=== PATIENT | female | born 1950 | race Caucasian/White ===

== ENCOUNTER 2016-10-21 19:05 | Observation (INO) | payer MEDICARE, MEDICAID ==
[~2016-10-21] VITALS: Ht 167.6 cm; Wt 93.7 kg
[~2016-10-21 19:05] MED LIST: ASPI81TA3 PO; CYAN250014 PO; DICL75TA6 PO; FLUO20CA25 PO; FLUT16SP NS; LOSA100T29 PO; MONT10TA23 PO; TRIA1CAP5 PO
--- NOTE | 2016-10-21 19:09 | ED.REPORT ---
HPI-Chest Pain 40 and Over Date of Service Oct 21, 2016 ED Provider: Dr. Whitehead 66 year old female with a history of HTN and GERD presents to the ER accompanied by her granddaughter complaining of a week of intermittent chest pain. She states that symptoms worsened today becoming constant, with radiation down her left arm. Associated symptoms include SOB yesterday, nausea, headache, fatigue, chills, and dizziness/lightheadedness yesterday. Patient denies lower extremity swelling, diaphoresis, cough, fever, exertional component to her pain , recent immobilization or travel. Similar symptoms in the past associated with low potassium, and with GERD exacerbation. Nursing Notes Stated Complaint: CHEST PAIN Chief Complaint: Chest Pain Nursing Notes Reviewed: Yes Allergies: Coded Allergies: lisinopril (Verified Allergy, Unknown, 10/21/16) Uncoded Allergies: BATA BLOCKERS (Allergy, Unknown, 04/27/16) ERYTHROMYCIN (Allergy, Unknown, 04/27/16) PCN (Allergy, Unknown, 04/27/16) Scheduled Amlodipine (Amlodipine) 10 Mg Tablet 10 MG PO QAM Fluoxetine (Fluoxetine) 20 Mg Capsule 60 MG PO QAM Fluticasone Propionate (Fluticasone Propionate Nasal) 16 Gm [place].susp 1 SPRAY NS BID Losartan Potassium (Losartan Potassium) 100 Mg Tablet 100 MG PO QAM Montelukast (Montelukast) 10 Mg Tablet 10 MG PO QAM Omeprazole (Omeprazole) 20 Mg Tablet.dr 20 MG PO QAM Triamterene/HCTZ 37.5-25 mg (Triamterene/HCTZ 37.5-25 mg) 1 Each Capsule 1 CAPSULE PO QAM Scheduled PRN diphenhydrAMINE HCl (Benadryl) 25 Mg Capsule 50 MG PO HS PRN PRN General Time Seen by MD: 19:08 Chief Complaint Chest pain Hx Obtained From: Patient Arrived By: Walk-in Sudden in Onset?: No Onset Occurred: 1 week ago Symptom Duration: Intermittent Location: : Substernal Quality: Painful Radiation: : Arm left Severity: Current: Mild Severity: Maximum: Moderate Associated with: Reports: Dizziness, Fatigue, Nausea, Shortness of Breath, Syncope, Denies: Cough, non-productive, Diaphoresis, Fever Additional Notes: Pt complains of LOPEZ Context Related History: Reports: GERD, Hypertension Similar Sx Previous: Yes Risk Factors )( CAD Risk Stratification Family history Past Medical History Past Medical History Reports: Asthma, GERD, Hypertension Past Surgical History Reports: , Cholecystectomy, Hysterectomy Family History Father of [place] Smoking History Current Every Day Smoker Social History Drug Use: Denies drug use Ambulatory Status Independent Review of Systems Constitutional: Reports: Chills, Fatigue, Denies: Fever Respiratory: Reports: Shortness of breath, Denies: Non-productive cough Cardiovascular: Reports: Chest pain GI: Reports: Nausea, Denies: Vomiting Musculoskeletal: Reports: Back pain, Denies: Extremity swelling Skin: Denies Diaphoresis Neurologic: Reports: Dizziness, Headache, Lightheaded Complete sys rev & neg: except as marked. Physical Exam Initial Vital Signs Vital Signs (First) Date Time Temp Pulse Resp B/P Pulse Ox O2 Delivery O2 Flow Rate FiO2 10/21/16 19:10 36.6 87 17 152/71 97 Room Air Initial VS: Reviewed Head / Eyes: Atraumatic, Normocephalic, PERRL Neck: Supple, Non-tender, Full range of motion Extremities: Vascular intact, Neuro intact, No swelling, No tenderness Skin: Warm, Dry, No cyanosis Neurologic: Alert, Oriented, Nonfocal General/Constitutional: Awake, Alert, No acute distress, Well appearing Respiratory / Chest: Breath sounds NL, Breath sounds = bilat, No respiratory distress, No rales, No rhonchi, No wheezing, No stridor, No chest tenderness Cardiovascular: Heart rate NL, Regular rhythm, Heart sounds NL, No murmurs, Peripheral circulation NL, Pulses = bilaterally, No gross BP differential Interpretation & Diagnostics Lab Results Interpretation Result Diagram: 10/21/16192210/21/161922 Test 10/21/16 19:23 White Blood Count 8.9th/mm3 (3.8-10.1) Red Blood Count 4.46mil/mm3 (3.90-5.20) Hemoglobin 13.5g/dL (12.0-15.6) Hematocrit 41.8% (35.0-46.0) Mean Corpuscular Volume 93.7fL (81-100) Mean Corpuscular Hemoglobin 30.3pg (27.0-35.0) Mean Corpuscular Hemoglobin Concent 32.3% (32.0-37.0) Red Cell Distribution Width 13.1% (12.3-15.4) Platelet Count 313bil/L (150-400) Neutrophils (%) (Auto) 53.1% (40-74) Lymphocytes (%) (Auto) 35.2% (14-46) Monocytes (%) (Auto) 9.1% (4-12) Eosinophils (%) (Auto) 1.7% (0-5) Basophils (%) (Auto) 0.7% (0-3) D-Dimer < 0.50mg/L FEU (<0.50) Sodium Level 140mEq/L (134-144) Potassium Level 3.6mEq/L (3.5-5.2) Chloride Level 100mEq/L (97-108) Carbon Dioxide Level 25mmol/L (18-29) Blood Urea Nitrogen 19mg/dL (8-27) Creatinine 0.96mg/dL (0.57-1.00) Estimat Glomerular Filtration Rate 83mL/min (>59) Glucose Level 112mg/dL (60-99) Calcium Level 9.5mg/dL (8.5-10.1) Magnesium Level 2.0mg/dL (1.6-2.6) Total Bilirubin 0.2mg/dL (0.0-1.2) Aspartate Amino Transf (AST/SGOT) 20U/L (0-50) Alanine Aminotransferase (ALT/SGPT) 26U/L (0-32) Alkaline Phosphatase 68U/L (25-165) Troponin T < 0.010ug/L (0.0-0.011) Pro-B-Type Natriuretic Peptide 170.4pg/mL (0-301) Total Protein 7.1g/dL (6.4-8.4) Albumin 4.3g/dL (3.4-5.0) Hold Hartman Top Tube Received (Received) ECG Interpretation ECG Interpretation: Sinus rhythm, rate 80 Q wave in lead [address] depression v3-v6 T wave inversion in aVR No ST elevations Unchanged from prior Time: 19:23 Interpreted by: ED physician X-Ray Chest Interpretation Chest Xray Interpretation: IMPRESSION: No acute cardiopulmonary disease. Dictated by: Phan Sheth M.D. on 10/21/2016 at 20:07 Approved by: Phan Sheth M.D. on 10/21/2016 at 20:08 View: AP & lat Interpretation / Wet Read by: Interpret - Radiologist CT Abd / Pelvis Interpretation Re-Eval/Medical Decision Med Decision/Clinical Course 66-year-old female with past medical history of hypertension and GERD here with chest pain. Differential diagnosis includes but is not limited to ACS versus PE versus pneumonia versus pleural effusion. Chest x-ray is unremarkable. Initial EKG is unchanged from prior. CBC CMP and troponin are unremarkable. Patient's d-dimer was negative, so she does not require PE study. Given her history, and age, she has been admitted by the hospitalist for ACS rule out. She is aware and amenable to plan. Source of Hx: Old records Time of Eval: 20:28 Re-Evaluation/Progress Note: Discussed lab and radiology results and need for admission. Patient is amenable to the plan. All other questions addressed. Consultation : Referral / Consult Name: Raman Harris MD Consulted With: Hospitalist Call Returned at: 20:43 Mass Spec: Agrees with eval, Agrees with plan, Accepts admit Counseled Regarding: Diagnosis, Lab results, Need for admission Discharge & Departure Primary Impression: Chest pain Disposition: ADMITTED TO HOSPITAL Discharge Condition All VS Reviewed: Yes Condition: Stable Referrals: OTHER,PHYSICIAN (PCP) (Family) Scribe Attestation Portions of this note were transcribed by Russ Holloway and Lorenzo Alvares. I, Dr. Whitehead, personally performed the history, physical exam and medical decision- making; I reviewed and confirmed the accuracy of the information in the transcribed note. Signed by: Davis Lopez. 10/21/2016 - 20:43 Claudine Whitehead MD Oct 21, 2016 19:09 LORENZO ALVARES Oct 21, 2016 19:18 Russ Holloway Oct 21, 2016 19:25
[2016-10-21 19:10] VITALS: BP 152/71; PULSE 87; RESP 17; O2SAT 97
[2016-10-21 19:34] LABS: BASOPHILS % (AUTO) 0.7 % (0-3); EOSINOPHILS % (AUTO) 1.7 % (0-5); MONOCYTES % (AUTO) 9.1 % (4-12); Mean Corpuscular Hemoglobin 30.3 pg (27.0-35.0); Mean Corpuscular Volume 93.7 fL (81-100); NEUTROPHILS % (AUTO) 53.1 % (40-74); Platelet Count 313 bil/L (150-400)
[2016-10-21 20:00] LABS: TROPONIN T < 0.010 ug/L (0.0-0.011)
--- NOTE | 2016-10-21 20:09 | DRSVH ---
PROCEDURE: X-RAY CHEST, TWO VIEWS ([id number]) INDICATIONS: chest pain TECHNIQUE: 2 views of the chest were acquired. COMPARISON: None. FINDINGS: Surgical changes and devices: None. Lungs and pleura: No pleural effusions or pneumothorax. Lungs are clear. Mediastinum: Mediastinal contours are normal. Heart size is normal. Bones and chest wall: No suspicious bony abnormalities. Soft tissues appear unremarkable. IMPRESSION: No acute cardiopulmonary disease. Dictated by: Phan Sheth M.D. on 10/21/2016 at 20:07 Approved by: Phan Sheth M.D. on 10/21/2016 at 20:08
[2016-10-21] MEDS ORDERED: Alum-Mag Hydrox-Simeth 30 mL Suspension PO PRN ×2 (20:45→23:05)
[2016-10-21] MEDS ORDERED: Ondansetron 2 mg/mL 2 mL Inj IVPUSH PRN ×2 (20:45→23:05)
[2016-10-21] MEDS ORDERED: AMLO10TA3 PO (20:47)
[2016-10-21] MEDS ORDERED: OMEP20TA86 PO (20:47)
[2016-10-21] MEDS ORDERED: DIPH25CA6 PO (20:47)
[2016-10-21 21:35] VITALS: BP 142/52; PULSE 78; RESP 28; O2SAT 97
[2016-10-21 21:56] VITALS: BP 142/52; PULSE 78; RESP 28; O2SAT 97
[2016-10-21 22:07] VITALS: BP 169/78; PULSE 78; RESP 20; O2SAT 98
[2016-10-21] MEDS ORDERED: Polyethylene Glycol (PEG) 17 Gm Powder PO PRN (23:05)
[2016-10-21] MEDS ORDERED: Donnatal-Lido-Mylant 1:1:1 15 mL Syringe PO ONE (23:05)
--- NOTE | 2016-10-21 23:37 | PCM.HPMED ---
Subjective Date of Service Oct 21, 2016 Primary Provider: Admitting Physician: Raman Harris MD Primary Care Physician: Nopcp Attending Physician: Raman Harris MD Chief Complaint: chest pain History of Present Illness: 66yo lady with reported hx of htn, gerd. intermittent chest pain over the past week. L sided, substernal with radiation to L shoulder, arm. associated with some lightheadedness. rated as moderate to severe at worst. now subsiding. pain can be at rest or with activity. no known inciting factors. does have hx of gerd. reports prolonged immobility sits a lot during the day has bad knees does not move around a lot. no know hx of cad. Review of Systems: Positive Review of Symptoms mentioned and elaborated on in HPI. Head: Denies H/A, trauma, loss of consciousness. Eyes: Denies visual loss, diplopia. Ears: Denies: deafness, tinnitis, discharge, pain Nose: Denies discharge, obstruction, epistaxis Mouth: Denies sores, gingival bleeding, jaw pain Neck: Denies stiffness, issues swallowing. Respiratory: Denies cough, sputum. Cardiovascular:see hpi Denies palpitations, orthopnea, peripheral edema Gastrointestinal: Denies melena, abd pain, n/v/d Genitourinary: Denies dysuria, discharge. Skin: Denies: lesions, rashes, pruritus. Musculoskeletal: chronic knee pain.Denies new joint pain, swelling or increased warmth. Neuro: Denies numbness, tingling, weakness. Psyc: Currently denies feelings of anxiety, depression. Allergies Coded Allergies: lisinopril (Verified Allergy, Unknown, 10/21/16) Uncoded Allergies: BATA BLOCKERS (Allergy, Unknown, 04/27/16) ERYTHROMYCIN (Allergy, Unknown, 04/27/16) PCN (Allergy, Unknown, 04/27/16) Home Medications see med rec PMH as described in hpi Surgical History hysterectomy, gallbladder Family History + cardiac disease, mom&dad Social History Hx Alcohol Use: No Hx Substance Use: No Hx Tobacco Use: Yes (1/2 pack per day since 18yrs old) Smoking Status: Current Every Day Smoker Exam Vital Signs Vital Sign - Last Date Time Temp Pulse Resp B/P Pulse Ox O2 Delivery O2 Flow Rate FiO2 10/21/16 22:07 36.7 78 20 169/78 98 Room Air Exam General: No acute distress. Awake, alert. Head: Normocephalic, atraumatic. Eyes: White sclera. Conjunctiva non-injected. Mouth & Throat: No Bleeding. No erythema, lesions, exudates visualized. Neck: No tender adenopathy. Trachea midline. Respiratory: Clear to auscultation bilaterally. Symmetric chest expansion. Regular work of breathing without use of accessory muscles. Cardiovascular: S1, S2. Regular rate and rhythm without murmurs, rubs or gallops. Pulses 2+ equal bilaterally. tenderness along costochondral junctions b /l Abdomen: Normal bowel sounds x4 quadrants. Soft, non-tender, non-distended. Extremities: Intact. no joint effusions. no lower extremity tenderness, swelling , erythema or increased warmth. Skin: Intact, no lesions, no rash. Neurologic: Awake, alert, oriented x3. No focal deficits. Psychiatric: Appropriate mood and affect. Cooperative. Lab and Diagnostics Result Diagram: 10/21/16192210/21/161922 Assessment & Plan -- chest pain investigate for cardiac etiology serial troponins, echocardiogram, possible stress test in am. aspirin, statin, if necessary and as tolerated prn morphine, nitro. cbc, bmp, magnesium, tsh, lipid panel, urine toxicology if cardiac etiologies ruled out will evaluate for alternative differentials. should there be any clinical change in the interm to suggest an alternate diagnosis this will also be pursued. cta chest now. repeat ekg, troponin -- htn antihypertensives as tolerated -- gerd cont antacids. trial of gi cocktail dvt proph: lovenox. f/e/n: npo aftermidnight in case of stress test in am. monitor electrolytes. dispo: admit obs tele. expected los <2 midnights VTE Mechanical Devices: Intermittant Pneumatic CD Raman Harris MD Oct 21, 2016 23:37
--- NOTE | 2016-10-21 23:39 | NUR ---
Admit to room 3024 with unresolved chest pain. pain 6/10, BP Hypertensive 169/78 pulse 78, 98% O2 sat on RA. Alert and Oriented x3. Oriented to room, non-slip socks on for safety and POC on whiteboard.
[2016-10-21] MEDS: 0.9% Sodium Chloride 1,000 ML IV SCH (23:53)
[2016-10-22] VITALS (8 sets, daily range): BP systolic 121–156; BP diastolic 57–76; PULSE 60–75; RESP 18–21; O2SAT 94–98
[2016-10-22] MEDS: LORazepam 0.5 mg Tablet PO PRN ×2 (03:22→20:09)
--- NOTE | 2016-10-22 04:22 | NUR ---
Pain / Anxiety 6/10 prior to admin of 4mg Morphine, now 0/10. Unable to sleep due to anxiety, admin 0.5mg Ativan to good effect. Patient resting quietly
[2016-10-22 06:01] LABS: BASOPHILS % (AUTO) 0.4 % (0-3); EOSINOPHILS % (AUTO) 1.5 % (0-5); MONOCYTES % (AUTO) 10.9 % (4-12); Mean Corpuscular Hemoglobin 29.6 pg (27.0-35.0); Mean Corpuscular Volume 94.3 fL (81-100); NEUTROPHILS % (AUTO) 53.7 % (40-74); Platelet Count 281 bil/L (150-400)
[2016-10-22] MEDS: Pantoprazole 20 mg ER24 Tablet PO SCH (06:29)
--- NOTE | 2016-10-22 08:28 | DRSVH ---
PROCEDURE: CT ANGIO CHEST PULMONARY EMBOLISM ([id number]) INDICATIONS: chest pain TECHNIQUE: After the administration of intravenous contrast, 2 mm thick sections acquired from the pulmonary api ayaan to the posterior costophrenic angles. 3-dimensional maximum intensity projection (MIP) coronal a nd sagittal reformats were then acquired through the thorax. For radiation dose reduction, the follo wing was used: automated exposure control, adjustment of mA and/or kV according to patient size. COMPARISON: [facility], CT, CT ABD PELVIS W CON, 04/27/2016, 22:38. FINDINGS: Image quality: Excellent. Pulmonary arteries: Pulmonary arteries are normal in size, and demonstrate no intraluminal filling d efects to suggest central pulmonary embolism. Lungs and pleura: Lungs are clear. No pleural effusions or pneumothorax. Central and peripheral ai rways are patent. Mediastinum: Heart size is normal, without pericardial effusion. No mediastinal or hilar adenopathy . Thoracic aorta is normal in caliber and enhancement. Esophagus is normal in caliber, without hiat al hernia. Bones and chest wall: No suspicious bony lesions. Ribs and thoracic spine appear intact throughout. Thyroid gland is unremarkable. No axillary or supraclavicular adenopathy. Abdomen: There is an unchanged appearance of mild left adrenal thickening. Cholecystectomy. Otherwis e, visualized upper abdominal solid organs appear normal in the early arterial phase of enhancement. IMPRESSION: 1. No visualized pulmonary embolism. 2. Lungs are clear. Dictated by: Liliana Silva M.D. on 10/22/2016 at 8:24 Approved by: Liliana Silva M.D. on 10/22/2016 at 8:26
[2016-10-22] MEDS: Fluticasone 0.05% 15 Spray/2 Gm 16 Gm Nasal Spray NASAL SCH ×2 (09:01→20:09)
--- NOTE | 2016-10-22 09:14 | NUR ---
Social Work: Initial Assessment Data: Pt is a 66 y/o female admitted for chest pain. Pt's PCP is not listed, pt's insurance is [facility] Medicare. EMR reviewed. Readmit score not listed. SERVICES MANAGER met with pt at bedside, role explained. 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 Pt drives, has no hx of HH or SNF, no LTC or VA benefits. Pt does not have AD/DPOA, accepted info from SERVICES MANAGER. SERVICES MANAGER requested UR specialist set up an appointment with [facility] as pt requested assistance with getting a PCP. No d/c planning needs anticipated at this time. SERVICES MANAGER will continue to follow if needs arise. Assessment: Pt who is independent at baseline. Plan: Pt will d/c home via POV when medically stable. No d/c planning needs anticipated at this time. SERVICES MANAGER will continue to follow if needs arise. ANGY El Addendum: 10/22/16 at 0916 by ANATOLIY MENDOZA Amended: Links added.
[2016-10-22] MEDS: 0.9% Sodium Chloride 1,000 ML IV SCH ×2 (10:32→18:13)
--- NOTE | 2016-10-22 10:52 | NUR ---
Pain Patient c/o chest pain 12/26. Notified Dr Shane. PRN morphine given as ordered for chest pain. Dr Shane at bed side and spoke to patient. Will continue to monitor.
--- NOTE | 2016-10-22 11:11 | NUR ---
New order Per Dr. Shane order patient can eat now. Diet orders heart healthy diet. Per patient I am hungry and requested orange juice and Jello and given as patient requested. EKG at bed side is in progress. Follow up after morphine given and states," it is better than before but not completely gone." Will continue to monitor.
--- NOTE | 2016-10-22 11:29 | NUR ---
EKG Notified Dr Shane r/t EKG results and handed paper results for 10/22 and 10/21 to compare. per orders continue to monitor for chest pain and morphine. patient received lunch and eating at bed side with out any increased sign and symptoms of pain. Continue to monitor.
--- NOTE | 2016-10-22 11:51 | NUR ---
Telemetry per Tele sinus 85.
--- NOTE | 2016-10-22 13:39 | NUR ---
ECHOCARDIOGRAM Echocardiogram is in progress at bed side.
--- NOTE | 2016-10-22 14:56 | NUR ---
New orders Patient is c/o chest pain intermittent. Notified Dr Shane and writing new orders for pain medication PO PRN.
--- NOTE | 2016-10-22 15:43 | NUR ---
Headache C/o back pain and head aches 6/10 per patient. PRN Tylenol given as ordered for pain. continue to monitor.
--- NOTE | 2016-10-22 16:06 | NUR ---
set up [facility] F/U apt with Dr. Gleason 10/30 with a 10:15A check in. advised SIMULATION SPECIALIST.
--- NOTE | 2016-10-22 16:29 | DRSVH ---
[facility] [address] [place] [address] Echocardiogram Report Name: DAMI PACHECO ISsavanah Date : 10/22/2016 Height: 66 in Hospital Exam Location: [facility] Weight: 207 lb Gender: Female BSA: 2.0 m2 : 1950 Age: 66 yrs BP: 121/76 mmHg Reason For Study: CHEST PAIN Ordering Physician: Performed By: Castro Roberts Interpretation Summary Normal left ventricle size with ejection fraction 60-65%. Grade I diastolic dysfunction. Mildly dilated left atrium. Moderate aortic valve sclerosis. The right ventricular systolic pressure is estimated at 26 mmHg assuming a right atrial pressure of 3 mm Hg. Procedure: A two-dimensional transthoracic echocardiogram with color flow and Doppler was performed. The study quality was technically adequate. Images from the parasternal window were difficult to obtain and are suboptimal in quality. There is no prior echocardiogram noted for this patient. The patient was in normal sinus rhythm during the exam. Left Ventricle: The left ventricle is normal in size. There is normal left ventricular wall thickness. Trabeculae near apex are visualized. No thrombus is observed. The ejection fraction is estimated to be 60-65%. There are no focal wall motion abnormalities. Assessment of diastolic parameters indicates a relaxation abnormality of the left ventricle, consistent with normal filling pressures. Right Ventricle: The right ventricle is normal in size and function. Atria: The left atrium is mildly dilated. Right atrial size is normal. The interatrial septum is intact with no evidence for an atrial septal defect. Mitral Valve: The mitral valve is normal in structure and function. There is trace mitral regurgitation. Aortic Valve: The aortic valve opens well. There is moderate aortic valve sclerosis. No aortic regurgitation is present. Tricuspid Valve: The tricuspid valve is normal in structure and function. There is trace tricuspid regurgitation. The right ventricular systolic pressure is estimated at 26 mmHg assuming a right atrial pressure of 3 mm Hg. Pulmonic Valve: The pulmonic valve is not well visualized. Great Vessels: The aortic root is normal size. The dimensions of the ascending aorta are normal. The pulmonary artery is normal size. The IVC is of normal diameter and collapses greater than 50% with a sniff. This suggests a low right atrial pressure of 3 mm Hg. Pericardium/ Pleura There is no pericardial effusion. There is no pleural effusion. MMode/2D Measurements & Calculations LVIDd: 4.7 cm RA long axis LVOT diam LVIDs: 3.2 cm LA A2 area: 23.0 cm FS: 31.6 % LA A4 area: 19.0 cm RA area Ao root diam EPSS: 0.51 cm LA length (vol): 5.3 cm IVSd: 1.2 cm LA vol: 70.2 ml : 10.8 cm asc Aorta LVPWd: 1.1 cm LA vol index RA vol: 27.5 mlDiam: 3.0 cm RA : 13.5 mm2 IVC diam: 1.5 cm LV forman. diameter/BSA LV sys. diameter/BSA (cm/m^2): 2.3 (cm/m^2): 1.6 Doppler Measurements & Calculations Ao V2 max MV E max perry MV E/A: 0.71 TR max perry : 136.1 cm/sec : 59.4 cm/sec Med Peak E' Perry : 240.2 cm/sec Ao max PG MV A max perry TR max P.1 mmHg : 7.4 mmHg : 84.0 cm/sec E/E' med: 9.4 PA V2 max: 105.9 cm/sec Ao mean PG Pulm A Revs Dur PA mean P.7 mmHg : 4.8 mmHg PA Accel Time: 0.09 sec MV A dur: 0.10 sec MV dec time Ao V2 mean PA V2 mean Pulm A Revs Dur - MV A : 0.28 sec : 106.2 cm/sec : 78.3 cm/sec Dur: 0.04 msec Ao V2 VTI: 27.1 cmPA pr(Accel) : 39.1 mmHg Electronically signed by: Claire Zacarias on Reading Physician:10/22/2016 04:29 PM
--- NOTE | 2016-10-22 20:10 | NUR ---
Anxiety Pt c/o mild anxiety. Lorazepam 0.5mg given. "It helped me last night." care ongoing.
--- NOTE | 2016-10-22 22:04 | NUR ---
Pain Pt stated, "that anxiety med took my helped my chest and stomach." Lorazepam. This RN went to ask about after 1700 discharge time due to transportation issues and came back after 1 min. Pt stated, " I am having chest pain now." Pt c/o 12/26 chest pain. No facial grimacing, chest guarding or distress noted. Pt able to play video games on her phone that "helps with distracting the pain." Morphine 1mg IV given. Care ongoing. Addendum: 10/23/16 at 0505 by DENISE MONTGOMERY RN quote correction:Pt stated, "That anxiety med took my chest and stomach pain away." Lorazepam
--- NOTE | 2016-10-22 23:28 | PCM.PNMED ---
Subjective Date of Service Oct 22, 2016 Subjective Patient is seen and examined. She complains of neck ache S and chest wall tightness. She states that her chest pain is real and feels stressed this is a good idea Exam Vital Signs Vital Sign - Last Date Time Temp Pulse Resp B/P Pulse Ox O2 Delivery O2 Flow Rate FiO2 10/22/16 03:21 36.8 60 20 121/76 98 Room Air Intake and Output 10/21/16 10/21/16 10/22/16 Cumulative From/Thru 15:00 23:00 07:00 10/21/16 22:09 - 10/22/16 06:35 Intake Total 641 ml 641 ml Output Total 700 ml 700 ml Balance -59 ml -59 ml Intake Oral 0 ml 0 ml IV Total 641 ml 641 ml Output Urine Total 700 ml 700 ml # Bowel Movements 0 0 Exam Gen.: No acute distress laying in bed. HEENT: Normocephalic, atraumatic Heart: Regular rate and rhythm m no S3-S4 murmur murmurs Lungs: Clear to auscultation bilaterally Abdomen: Nontender nondistended Neck: Negative for JVD Extremities: Trace edema is present Neuro: No focal deficits Psych: Negative for anxiety IVs and Medications IV Fluids None Plan Medications Reviewed: Medications were reviewed in detail Lab and Diagnostics Result Diagram: 10/22/1645 10/22/16 0545 Assessment & Plan Acute assessment #1 chest pain She certainly has a musculoskeletal component Flexeril and tramadol given serial troponins, echocardiogram, possible stress test in tomorrow a.m.: Patient states that she has had a stress test he in April but we have no such records Daily aspirin prn IV morphine, nitro. TSH is within normal cta chest is negative. Troponins are negative Based on her ASCVD risk profile she can definitely use a statin, will evaluate if she is allergic tomorrow Currently she is allergic to beta blockers and lisinopril Acute musculoskeletal chest pain: Flexeril and tramadol, Tylenol as above Chronic assessments #1 hypertension continue home medications #2 GERD: Continue famotidine #3 depression continue home medications dvt proph: lovenox. f/e/n: npo aftermidnight in case of stress test in am. monitor electrolytes. dispo: admit obs tele. expected los <2 midnights Pain Evaluation: Adequate Pain Control GI Prophylaxis: H2 estefany VTE Prophylaxis: Sub-Q Enoxaparin VTE Mechanical Devices: Intermittant Pneumatic CD Jael Shane DO Oct 22, 2016 08:06
[2016-10-23 01:43] VITALS: BP 132/75; PULSE 66; RESP 19; O2SAT 96
[2016-10-23] MEDS: 0.9% Sodium Chloride 1,000 ML IV SCH ×2 (04:27→15:01)
[2016-10-23] MEDS: Pantoprazole 20 mg ER24 Tablet PO SCH (05:49)
[2016-10-23 05:59] VITALS: BP 115/71; PULSE 62; RESP 17
[2016-10-23 06:25] VITALS: PULSE 63
[2016-10-23 08:00] VITALS: PULSE 62
[2016-10-23] MEDS: Fluticasone 0.05% 15 Spray/2 Gm 16 Gm Nasal Spray NASAL SCH (09:03)
[2016-10-23 09:14] VITALS: BP 143/81; PULSE 61; RESP 18; O2SAT 96
--- NOTE | 2016-10-23 13:01 | NUR ---
Case Management: ALFONZO given and explained to pt. Heike MADDOX RN
[2016-10-23 15:12] VITALS: BP 139/65; PULSE 71; RESP 18; O2SAT 95
--- NOTE | 2016-10-23 15:30 | NUR ---
Indigestion Patient had complaints of acid reflux and was administered Maalox as ordered PRN. Medication was temporarily effective. Patient asked for more Maalox 2.5 hours later and was explained it was ordered for every 6 hours and she was fine with that.
--- NOTE | 2016-10-23 16:22 | NUR ---
Social Work: Discharge Data: Pt is on day 3 of hospitalization. EMR reviewed. D/C orders are in. No d/c planning needs at this time. FOUR H AGENT will continue to follow if needs arise. Assessment: Pt who is independent at baseline. Plan: Pt will d/c home via POV today. Appointment [facility] with [facility] on October 30 at 10:15am. No d/c planning needs at this time. FOUR H AGENT will continue to follow if needs arise. ANGY El
--- NOTE | 2016-10-23 16:33 | DRSVH ---
PROCEDURE: EITHER REST OR STRESS ONLY Exercise myocardial perfusion SPECT with gated imaging and ejection fraction RADIOPHARMACEUTICAL: 22.1 mCi Tc-99m tetrafosmin IV at peak exercise. INDICATIONS: 66 year-old woman with chest pain. The patient has family history of coronary artery di sease. Evaluate for ischemia. TECHNIQUE: Radiopharmaceutical was injected at peak stress test. SPECT images were obtained, with p erfusion images in short axis, horizontal long axis, and vertical long axis views. Gated images were reviewed using [employer] software. COMPARISON: None. CARDIAC STRESS: A standard Josh treadmill exercise tolerance test was performed by the patient under the supervision of an attending staff. The patient exercised for 3 minutes and 0 seconds; functional aerobic impair ment (JONN) is +41 %. Hemodynamic data: There is normal blood pressure and heart response to exercise. Patient achieved 8 8% of maximum predicted heart rate. Symptoms: Baseline atypical chest pain, mild transient worsening during exercise. EKG: No diagnostic changes of ischemia; rare PVCs. FINDINGS: Raw data: There is good labeling of myocardium by radiotracer. No significant motion artifacts. Left ventricular function: Gated images demonstrate normal left ventricle wall thickening. No segme ntal wall motion abnormalities. Left ventricle end diastolic volume is normal. Left ventricle stres s ejection fraction is greater than 70%; normal values are above 45%. Myocardial perfusion: There is normal distribution of activity in the left and right ventricular mayela cardium, without focal perfusion defects. IMPRESSION: 1. Normal exercise stress myocardial perfusion images. 2. Normal left ventricular volume and systolic function. 3. Severely limited exercise capacity. Baseline chest pain with transient worsening during exercise. No diagnostic EKG changes for ischemia. PQRS ATTESTATIONS: Measure 322 - Is this imaging test primarily performed on a low-risk surgery patient for preoperative evaluation within 30 days preceding their low-risk non-cardiac surgery? Low-risk surgery is defined as cardiac or myocardial infarction less than 1%, including (but not limited to) endoscopic pr ocedures, superficial procedures, cataract surgery, and excisional breast surgery: Answer: No Measure 323 - Is this imaging test performed primarily for the monitoring of an asymptomatic patient who had percutaneous coronary intervention on the visit date or within 2 years of the visit date? An swer: No Measure 324 - Is this imaging test performed primarily for the initial detection and risk assessment on an asymptomatic, low coronary heart disease patient? Low CHD risk definition = clinicians should consider the maximum number of available patient factors used to estimate risk based on [place] (A TP III criteria), typically age, gender, diabetes, smoking status, and use of blood pressure medicati on, and integrate age appropriate estimates for missing elements, such as LDL or standard blood press ure. Answer: No Dictated by: Phan Sheth M.D. on 10/23/2016 at 16:27 Approved by: Phan Sheth M.D. on 10/23/2016 at 16:31
--- NOTE | 2016-10-23 16:40 | PCM.DIMED ---
Discharge Instructions Date of Service Oct 23, 2016 Dates of Hospitalization Oct 21, 2016 at 20:50 Discharge Diagnosis Discharge Diagnosis Chest discomfort due to acid reflux, musculoskeletal pain Medication Instructions Please double your home omeprazole dose as instructed. Weight loss for patients with GERD who are overweight or have had recent weight gain. Elevation of the head of the bed in individuals with nocturnal or laryngeal symptoms (eg, cough, hoarseness, throat clearing). This can be achieved either by putting six- to eight-inch blocks under the legs at the head of the bed or a Styrofoam wedge under the mattress. Dietary modification should not be routinely recommended in all patients with GERD. Elimination of dietary triggers (fatty foods, caffeine, chocolate, spicy foods, food with high fat content, carbonated beverages, and peppermint) in patients who note correlation with GERD symptoms and an improvement in symptoms with elimination. Avoidance of tight-fitting garments . Promotion of salivation through oral lozenges/chewing gum to neutralize refluxed acid and increase the rate of esophageal acid clearance. Avoidance of tobacco and alcohol as both reduce lower esophageal sphincter pressure and smoking also diminishes salivation. Abdominal breathing exercise to strengthen the antireflux barrier of the lower esophageal sphincter. Diet Other (avoid citrus fruit, coffee or other caffinated drinks, chocolate as above ) Activity No restrictions Call your provider Fever or Chills, Shortness of breath, Bleeding, Chest pain, Vomitting, Excessive diarrhea, Weakness (unilateral) Patient Instructions Follow-up plan Please schedule her a f/u at the residency clinic in 2 weeks Jael Shane DO Oct 23, 2016 16:20
[2016-10-23] MEDS ORDERED: Al Hydrox/Mg Hydrox/Simeth PO (16:42)
[2016-10-23] MEDS ORDERED: OMEP20CA11 PO (16:42)
[2016-10-23] MEDS ORDERED: ATRV10T PO (16:50)
--- NOTE | 2016-10-23 17:26 | NUR ---
Discharge Patient given discharge orders. Patient given medication list with verbal and written instructions for next dose due. Follow up appointment made for residency clinic and given information to patient. Patient IV removed fully intact and asymptomatic. Patient telemetry removed and notified telephone information clerk. Patient called daughter for transportation.
--- NOTE | 2016-10-23 20:23 | PCM.DC.MED ---
Discharge Summary Date of Service Oct 23, 2016 Dates of Hospitalization Date of Hospital Admission Oct 21, 2016 at 20:50 Date of Discharge: Oct 23, 2016 Providers: Admitting Physician: Raman Harris MD Primary Care Physician: Nopcp Attending Physician: Raman Harris MD Diagnosis at Time of Discharge Diagnosis at Time of Discharge Chest discomfort due to acid reflux, musculoskeletal pain Consultations None Procedures XRay, CTs & MRIs [facility] Diagnostic [place] [address] Patient Name: DAMI PACHECO I MR#: [id number] [place] [facility] [place] Phys: Jael Paz DO Date of Service: 10/23/16 1228 PROCEDURE: EITHER REST OR STRESS ONLY Exercise myocardial perfusion SPECT with gated imaging and ejection fraction RADIOPHARMACEUTICAL: 22.1 mCi Tc-99m tetrafosmin IV at peak exercise. INDICATIONS: 66 year-old woman with chest pain. The patient has family history of coronary artery disease. Evaluate for ischemia. TECHNIQUE: Radiopharmaceutical was injected at peak stress test. SPECT images were obtained, with perfusion images in short axis, horizontal long axis, and vertical long axis views. Gated images were reviewed using [employer] software. COMPARISON: None. CARDIAC STRESS: A standard Josh treadmill exercise tolerance test was performed by the patient under the supervision of an attending staff. The patient exercised for 3 minutes and 0 seconds; functional aerobic impairment (JONN) is +41 %. Hemodynamic data: There is normal blood pressure and heart response to exercise. Patient achieved 88% of maximum predicted heart rate. Symptoms: Baseline atypical chest pain, mild transient worsening during exercise. EKG: No diagnostic changes of ischemia; rare PVCs. FINDINGS: Raw data: There is good labeling of myocardium by radiotracer. No significant motion artifacts. Left ventricular function: Gated images demonstrate normal left ventricle wall thickening. No segmental wall motion abnormalities. Left ventricle end diastolic volume is normal. Left ventricle stress ejection fraction is greater than 70%; normal values are above 45%. Myocardial perfusion: There is normal distribution of activity in the left and right ventricular myocardium, without focal perfusion defects. IMPRESSION: 1. Normal exercise stress myocardial perfusion images. 2. Normal left ventricular volume and systolic function. 3. Severely limited exercise capacity. Baseline chest pain with transient worsening during exercise. No diagnostic EKG changes for ischemia. PQRS ATTESTATIONS: Measure 322 - Is this imaging test primarily performed on a low-risk surgery patient for preoperative evaluation within 30 days preceding their low-risk non- cardiac surgery? Low-risk surgery is defined as cardiac or myocardial infarction less than 1%, including (but not limited to) endoscopic procedures, superficial procedures, cataract surgery, and excisional breast surgery: Answer : No Measure 323 - Is this imaging test performed primarily for the monitoring of an asymptomatic patient who had percutaneous coronary intervention on the visit date or within 2 years of the visit date? Answer: No Measure 324 - Is this imaging test performed primarily for the initial detection and risk assessment on an asymptomatic, low coronary heart disease patient? Low CHD risk definition = clinicians should consider the maximum number of available patient factors used to estimate risk based on [place] ( ATP III criteria), typically age, gender, diabetes, smoking status, and use of blood pressure medication, and integrate age appropriate estimates for missing elements, such as LDL or standard blood pressure. Answer: No Dictated by: Phan Sheth M.D. on 10/23/2016 at 16:27 Approved by: Phan Sheth M.D. on 10/23/2016 at 16:31 [facility] Diagnostic [place] [address] Patient Name: DAMI PACHECO I MR#: [id number] [place] [facility] [place] Phys: Raman Harris MD Date of Service: 10/21/16 225 PROCEDURE: CT ANGIO CHEST PULMONARY EMBOLISM ([id number]) INDICATIONS: chest pain TECHNIQUE: After the administration of intravenous contrast, 2 mm thick sections acquired from the pulmonary apices to the posterior costophrenic angles. 3-dimensional maximum intensity projection (MIP) coronal and sagittal reformats were then acquired through the thorax. For radiation dose reduction, the following was used: automated exposure control, adjustment of mA and/or kV according to patient size. COMPARISON: [facility], CT, CT ABD PELVIS W CON, 04/27/2016, 22:38. FINDINGS: Image quality: Excellent. Pulmonary arteries: Pulmonary arteries are normal in size, and demonstrate no intraluminal filling defects to suggest central pulmonary embolism. Lungs and pleura: Lungs are clear. No pleural effusions or pneumothorax. Central and peripheral airways are patent. Mediastinum: Heart size is normal, without pericardial effusion. No mediastinal or hilar adenopathy. Thoracic aorta is normal in caliber and enhancement. Esophagus is normal in caliber, without hiatal hernia. Bones and chest wall: No suspicious bony lesions. Ribs and thoracic spine appear intact throughout. Thyroid gland is unremarkable. No axillary or supraclavicular adenopathy. Abdomen: There is an unchanged appearance of mild left adrenal thickening. Cholecystectomy. Otherwise, visualized upper abdominal solid organs appear normal in the early arterial phase of enhancement. IMPRESSION: 1. No visualized pulmonary embolism. 2. Lungs are clear. Dictated by: Liliana Silva M.D. on 10/22/2016 at 8:24 Approved by: Liliana Silva M.D. on 10/22/2016 at 8:26 [facility] Diagnostic Imaging Department [place], [place] [id number] Patient Name: DAMI PACHECO I MR#: [id number] [place] [facility] [place] Phys: Claudine Whitehead MD Date of Service: 10/21/161908 PROCEDURE: X-RAY CHEST, TWO VIEWS ([id number]) INDICATIONS: chest pain TECHNIQUE: 2 views of the chest were acquired. COMPARISON: None. FINDINGS: Surgical changes and devices: None. Lungs and pleura: No pleural effusions or pneumothorax. Lungs are clear. Mediastinum: Mediastinal contours are normal. Heart size is normal. Bones and chest wall: No suspicious bony abnormalities. Soft tissues appear unremarkable. IMPRESSION: No acute cardiopulmonary disease. Dictated by: Phan Sheth M.D. on 10/21/2016 at 20:07 Approved by: Phan Sheth M.D. on 10/21/2016 at 20:08 Brief History 66yo lady with reported hx of htn, gerd. intermittent chest pain over the past week. L sided, substernal with radiation to L shoulder, arm. associated with some lightheadedness. rated as moderate to severe at worst. now subsiding. pain can be at rest or with activity. no known inciting factors. does have hx of gerd. reports prolonged immobility sits a lot during the day has bad knees does not move around a lot. no know hx of cad. Hospital Course Acute assessment #1 chest pain thought to be secondary to GERD and muscular skeletal component She certainly has a musculoskeletal component Flexeril and tramadol given serial troponins are negative Daily aspirin: Not continued at the time of discharge due to recent GI bleed as she has had GI bleed admission in the recent past. Please discuss this with the patient at the follow-up as she may still benefit from this prn IV morphine, nitro. We will given TSH is within normal cta chest is negative. Troponins are negative Based on her ASCVD risk profile she can definitely use a statin: She started on Lipitor 10 mg daily at bedtime at discharge Currently she is allergic to beta blockers and lisinopril Acute musculoskeletal chest pain: Flexeril and tramadol, Tylenol as above Chronic assessments #1 hypertension continue the home medications #2 GERD: Changed patient's home omeprazole to 20 twice a day, also give prescription for Mallox #3 depression continued home medications Exam Vital Signs (Last) Date Time Temp Pulse Resp B/P Pulse Ox O2 Delivery O2 Flow Rate FiO2 10/23/16 15:12 36.7 71 18 139/65 95 Room Air Exam Gen.: No acute distress HEENT: Normocephalic, atraumatic Lungs clear. Auscultation bilaterally no crackles or wheezes appreciated Abdomen obese, soft and nontender Noted extremities: Trace edema is present Psych: No anxiety Neuro: No focal deficits Test 10/21/16 19:23 10/22/16 03:05 10/22/16 05:45 10/22/16 14:40 D-Dimer < 0.50mg/L FEU (<0.50) Pro-B-Type Natriuretic Peptide 170.4pg/mL (0-301) Hold Hartman Top Tube Received (Received) Hold Urine Received (Received) White Blood Count 7.4th/mm3 (3.8-10.1) Red Blood Count 3.88mil/mm3 (3.90-5.20) Hemoglobin 11.5g/dL (12.0-15.6) Hematocrit 36.6% (35.0-46.0) Mean Corpuscular Volume 94.3fL (81-100) Mean Corpuscular Hemoglobin 29.6pg (27.0-35.0) Mean Corpuscular Hemoglobin Concent 31.4% (32.0-37.0) Red Cell Distribution Width 13.2% (12.3-15.4) Platelet Count 281bil/L (150-400) Neutrophils (%) (Auto) 53.7% (40-74) Lymphocytes (%) (Auto) 33.4% (14-46) Monocytes (%) (Auto) 10.9% (4-12) Eosinophils (%) (Auto) 1.5% (0-5) Basophils (%) (Auto) 0.4% (0-3) Sodium Level 143mEq/L (134-144) Potassium Level 3.6mEq/L (3.5-5.2) Chloride Level 103mEq/L (97-108) Carbon Dioxide Level 24mmol/L (18-29) Blood Urea Nitrogen 20mg/dL (8-27) Creatinine 0.75mg/dL (0.57-1.00) Estimat Glomerular Filtration Rate 111mL/min (>59) Glucose Level 99mg/dL (60-99) Hemoglobin A1c 5.6% (4.8-5.6) Calcium Level 8.9mg/dL (8.5-10.1) Magnesium Level 2.0mg/dL (1.6-2.6) Total Bilirubin 0.2mg/dL (0.0-1.2) Aspartate Amino Transf (AST/SGOT) 19U/L (0-50) Alanine Aminotransferase (ALT/SGPT) 24U/L (0-32) Alkaline Phosphatase 57U/L (25-165) Total Protein 5.9g/dL (6.4-8.4) Albumin 3.9g/dL (3.4-5.0) Triglycerides Level 161mg/dL (0-149) Cholesterol Level 173mg/dL (100-199) LDL Cholesterol, Calculated 101.800mg/dL (0-99) VLDL Cholesterol 32.200mg/dL HDL Cholesterol 39mg/dL (>39) Cholesterol/HDL Ratio 4.44 (0.0-4.4) Thyroid Stimulating Hormone (TSH) 3.300uIU/mL (0.450-4.500) Troponin T < 0.010ug/L (0.0-0.011) Discharge Medications Discharge Medications Amlodipine (Amlodipine) 10 Mg Tablet 10 MG PO QAM (Reported) Atorvastatin (Lipitor) 10 Mg Tab 10 MG PO DAILY Prescribed by: JAEL PAZ DO Fluoxetine (Fluoxetine) 20 Mg Capsule 60 MG PO QAM (Reported) Fluticasone Propionate (Fluticasone Propionate Nasal) 16 Gm [place].susp 1 SPRAY NS BID (Reported) Losartan Potassium (Losartan Potassium) 100 Mg Tablet 100 MG PO QAM (Reported) Montelukast (Montelukast) 10 Mg Tablet 10 MG PO QAM (Reported) Omeprazole (Omeprazole) 20 Mg Capsule.dr 20 MG PO BID Prescribed by: JAEL PAZ DO Triamterene/HCTZ 37.5-25 mg (Triamterene/HCTZ 37.5-25 mg) 1 Each Capsule 1 CAPSULE PO QAM (Reported) As needed ([Al Hydrox/Mg Hydrox/Simeth]) 30 ML SUSP 30 ML PO Q6H PRN PRN For Dyspepsia or Heartburn Prescribed by: JAEL PAZ DO diphenhydrAMINE HCl (Benadryl) 25 Mg Capsule 50 MG PO HS PRN PRN (Reported) Additional med instructions Please double your home omeprazole dose as instructed. Weight loss for patients with GERD who are overweight or have had recent weight gain. Elevation of the head of the bed in individuals with nocturnal or laryngeal symptoms (eg, cough, hoarseness, throat clearing). This can be achieved either by putting six- to eight-inch blocks under the legs at the head of the bed or a Styrofoam wedge under the mattress. Dietary modification should not be routinely recommended in all patients with GERD. Elimination of dietary triggers (fatty foods, caffeine, chocolate, spicy foods, food with high fat content, carbonated beverages, and peppermint) in patients who note correlation with GERD symptoms and an improvement in symptoms with elimination. Avoidance of tight-fitting garments . Promotion of salivation through oral lozenges/chewing gum to neutralize refluxed acid and increase the rate of esophageal acid clearance. Avoidance of tobacco and alcohol as both reduce lower esophageal sphincter pressure and smoking also diminishes salivation. Abdominal breathing exercise to strengthen the antireflux barrier of the lower esophageal sphincter. Followup Plan Follow-up plan Please schedule her a f/u at the residency clinic in 2 weeks Discharge Diet: Other (avoid citrus fruit, coffee or other caffinated drinks, chocolate as above) Discharge Activity: No restrictions Jael Paz DO Oct 23, 2016 16:43
[2016-12-24] MEDS ORDERED: HYDR25CA PO (14:40)
[2016-12-24] MEDS ORDERED: BUSP10TA2 PO (14:40)
[2016-12-24] MEDS ORDERED: AMLO2.5T PO (14:40)
== END 2016-10-23 17:34 | disposition home or self-care (01) ==
LOC: SED 19:05 → INTOOBSV 20:50 → MPC 20:50 → OBSVTOIN 20:50
PROVIDERS: ADMIT Family Medicine; ATTEND Family Medicine
DX: R07.89 Other chest pain (principal); I10 Essential (primary) hypertension; K21.9 Gastro-esophageal reflux disease without esophagitis; F17.210 Nicotine dependence, cigarettes, uncomplicated; Z79.899 Other long term (current) drug therapy
CPT/HCPCS: 36415; 71020; 71275; 78451; 80053; 80061; 82948; 83036; 83735; 83880; 84443; 84484; 85025; 85378; 93005; 93017; 96374; 96376; 99285; A9502; C8929; G0378; G0463; J1650; J2270; J7030; Q9967

== ENCOUNTER 2016-10-30 11:31 | Emergency (ER) | payer MEDICARE, MEDICAID ==
[~2016-10-30] VITALS: Ht 167.6 cm; Wt 100.0 kg
[~2016-10-30 11:31] MED LIST changes: +AMLO10TA3 PO; -ASPI81TA3 PO; +ATRV10T PO; +Al Hydrox/Mg Hydrox/Simeth PO; -CYAN250014 PO; -DICL75TA6 PO; +DIPH25CA6 PO; +OMEP20CA11 PO
--- NOTE | 2016-10-30 11:35 | ED.REPORT ---
HPI-Chest Pain 40 and Over Date of Service Oct 30, 2016 ED Provider: The patient is a 66 year old female with history of asthma, GERD, and hypertension, who presents to the emergency department [facility] for chest pain. The pain radiates into her jaw and neck. She feels like she has an elephant sitting on her chest. She also reports feeling like she is having a hard time breathing. She was given nitroglycerin x1 by medics which improved her pain temporarily. The patient was seen in the emergency department last week for similar symptoms and was admitted to the hospital. She had a negative workup that included a stress test. Her pain has continued since onset. She has taken antacids with some relief. Nursing Notes Stated Complaint: CHEST PAIN Nursing Notes Reviewed: Yes Allergies: Coded Allergies: lisinopril (Verified Allergy, Unknown, 10/21/16) Uncoded Allergies: BATA BLOCKERS (Allergy, Unknown, 04/27/16) ERYTHROMYCIN (Allergy, Unknown, 04/27/16) PCN (Allergy, Unknown, 04/27/16) Scheduled Amlodipine (Amlodipine) 10 Mg Tablet 10 MG PO QAM Atorvastatin (Lipitor) 10 Mg Tab 10 MG PO DAILY Fluoxetine (Fluoxetine) 20 Mg Capsule 60 MG PO QAM Fluticasone Propionate (Fluticasone Propionate Nasal) 16 Gm [place].susp 1 SPRAY NS BID Losartan Potassium (Losartan Potassium) 100 Mg Tablet 100 MG PO QAM Montelukast (Montelukast) 10 Mg Tablet 10 MG PO QAM Omeprazole (Omeprazole) 20 Mg Capsule.dr 20 MG PO BID Triamterene/HCTZ 37.5-25 mg (Triamterene/HCTZ 37.5-25 mg) 1 Each Capsule 1 CAPSULE PO QAM Scheduled PRN ([Al Hydrox/Mg Hydrox/Simeth]) 30 ML SUSP 30 ML PO Q6H PRN PRN For Dyspepsia or Heartburn Naproxen (Naproxen) 500 Mg Tab 500 MG PO BID PRN PRN For Pain Tramadol (Tramadol) 50 Mg Tablet 50 MG PO Q4H PRN PRN For Pain diphenhydrAMINE HCl (Benadryl) 25 Mg Capsule 50 MG PO HS PRN PRN General Time Seen by MD: 11:34 Chief Complaint Chest pain Hx Obtained From: Patient, EMS Arrived By: Ambulance Sudden in Onset?: Yes Onset Occurred: 1 week ago Symptom Duration: Waxes and wanes Location: : Substernal Quality: Painful, Pressure Radiation: : Jaw: Neck Migration/Movement: Reports: None Severity: Current: Moderate Severity: Maximum: Severe Recent Healthcare: Recent doctor visit, Recent hospitalization Similar Sx Previous: Yes Past Medical History Past Medical History Reports: Asthma, GERD, Hypertension Past Surgical History Reports: , Cholecystectomy, Hysterectomy Family History Father of MA Smoking History Current Every Day Smoker Social History Drug Use: Denies drug use Other Social History: Local resident Ambulatory Status Independent Review of Systems Review of Systems Note: +jaw pain Respiratory: Reports: Shortness of breath Cardiovascular: Reports: Chest pain Musculoskeletal: Reports: Neck pain Complete sys rev & neg: except as marked. Physical Exam Initial Vital Signs Vital Signs (First) Date Time Temp Pulse Resp B/P Pulse Ox O2 Delivery O2 Flow Rate FiO2 10/30/16 11:38 36.4 10/30/16 11:39 92 20 183/83 Nasal Cannula 2 10/30/16 17:14 98 Initial VS: Reviewed, Vital signs abnormal Head / Eyes: Atraumatic, Normocephalic, PERRL ENT: Mucous membranes moist, Conjunctiva normal, No scleral icterus Neck: Supple, Non-tender, Full range of motion Lymphatic: No lymphadenopathy Extremities: Vascular intact, Neuro intact, No swelling, No tenderness Skin: Warm, Dry, No cyanosis Neurologic: Alert, Oriented, Nonfocal Psychiatric: Mood/affect normal, Behavior normal, Normal thought content General/Constitutional: Awake, Alert, No acute distress, Well appearing Respiratory / Chest: Atraumatic, Breath sounds NL, Breath sounds = bilat, No respiratory distress, No rales, No rhonchi, No wheezing, No stridor, No chest tenderness Cardiovascular: Heart rate NL, Regular rhythm, Heart sounds NL, No gallop, No murmurs, No rubs, Peripheral circulation NL, Pulses = bilaterally, No gross BP differential Abdomen: Atraumatic, Soft, Non-tender, McBurney's non-tender, No guarding, No rebound, BS normoactive, No distention, No hernia, No palpable mass Interpretation & Diagnostics ECHOCARDIOGRAM Interpretation Summary Left ventricular wall thickness is mildly increased. The ejection fraction is estimated to be 60-65%. EF has not changed since prior study. Left ventricular wall motion is normal. Compared to the prior exam, the left ventricular wall motion has not changed. Assessment of diastolic parameters indicates a relaxation abnormality of the left ventricle, consistent with normal filling pressures. The right ventricle is normal in size and function. Lab Results Interpretation Result Diagram: 10/30/16 1135 10/30/16 1135 Test 10/30/16 11:35 10/30/16 14:05 White Blood Count 9.4th/mm3 (3.8-10.1) Red Blood Count 4.51mil/mm3 (3.90-5.20) Hemoglobin 13.4g/dL (12.0-15.6) Hematocrit 42.4% (35.0-46.0) Mean Corpuscular Volume 94.0fL (81-100) Mean Corpuscular Hemoglobin 29.7pg (27.0-35.0) Mean Corpuscular Hemoglobin Concent 31.6% (32.0-37.0) Red Cell Distribution Width 13.0% (12.3-15.4) Platelet Count 348bil/L (150-400) Neutrophils (%) (Auto) 53.0% (40-74) Lymphocytes (%) (Auto) 35.4% (14-46) Monocytes (%) (Auto) 9.9% (4-12) Eosinophils (%) (Auto) 1.2% (0-5) Basophils (%) (Auto) 0.4% (0-3) Sodium Level 138mEq/L (134-144) Potassium Level 3.4mEq/L (3.5-5.2) Chloride Level 97mEq/L (97-108) Carbon Dioxide Level 24mmol/L (18-29) Blood Urea Nitrogen 10mg/dL (8-27) Creatinine 0.68mg/dL (0.57-1.00) Estimat Glomerular Filtration Rate 124mL/min (>59) Glucose Level 126mg/dL (60-99) Calcium Level 9.8mg/dL (8.5-10.1) Magnesium Level 2.2mg/dL (1.6-2.6) Total Bilirubin 0.3mg/dL (0.0-1.2) Aspartate Amino Transf (AST/SGOT) 18U/L (0-50) Alanine Aminotransferase (ALT/SGPT) 25U/L (0-32) Alkaline Phosphatase 70U/L (25-165) Total Protein 7.6g/dL (6.4-8.4) Albumin 4.5g/dL (3.4-5.0) Troponin T < 0.010ug/L (0.0-0.011) ECG Interpretation ECG Interpretation: Sinus rhythm with a rate of 97 LVH Time: 11:39 Interpreted by: ED physician X-Ray Chest Interpretation Chest Xray Interpretation: IMPRESSION: No acute cardiopulmonary disease. Dictated by: Phan Sheth M.D. on 10/30/2016 at 12:29 Interpretation / Wet Read by: Interpret - Radiologist Re-Eval/Medical Decision Med Decision/Clinical Course Serial EKGs troponins and bedside echo with active chest pain or unremarkable. Discussed with cardiology who agrees that this patient is not having cardiac type chest pain. We will discharge the patient and recommend antacids and follow-up as an outpatient. Return and follow-up precautions given. Source of Hx: Old records, EMS Time of Eval: 12:20 Re-Evaluation/Progress Note: Rechecked the patient. Her pain has not improved. She is not feeling well. She complains of lightheadedness. Time of Eval: 12:41 Re-Evaluation/Progress Note: Rechecked the patient. Discussed results and plan for repeat troponin. Time of Eval: 13:30 Re-Evaluation/Progress Note: She reports the pain is coming back with a vengeance. She was given a second dose of nitroglycerin that had initially improved her pain. Time of Eval: 14:09 Re-Evaluation/Progress Note: Discussed plan for discharge after the repeat troponin and echocardiogram. Time of Eval: 16:43 Re-Evaluation/Progress Note: Rechecked the patient. Discussed results, diagnosis, and plan for discharge. All questions were addressed. Consultation : Referral / Consult Name: Thang Jay MD Consulted With: Cardiology Requested Call at: 13:42 Call Returned at: 13:47 Outside Sales Engineer: Agrees with eval, Agrees with plan Note: He recommends managing her pain and then discharging her home with outpatient followup. Counseled Regarding: Diagnosis, Lab results, Need for follow-up, When/why to return to ED Discharge & Departure Primary Impression: Chest pain Chest pain type: unspecified Qualified Code: R07.9 - Chest pain, unspecified Disposition: Home Discharge Condition All VS Reviewed: Yes Condition: Stable Patient Instructions: Chest Pain (ED) Additional Instructions: Thank you for entrusting us with your care today. Your workup included a chest x -ray, EKGS, lab work, and an echocardiogram. The results are reassuring. After speaking with the on-call osteopathic resident we have decided that it is safe to let you go home with outpatient followup. Please call your regular doctor today to schedule a followup appointment for next week. Please return to the emergency department for any new or concerning symptoms. Referrals: NOPCP (PCP) Scribe Attestation Portions of this note were transcribed by Machelle Avila. I, Dr. Obrien personally performed the history, physical exam and medical decision-making; I reviewed and confirmed the accuracy of the information in the transcribed note. Signed by: Davis Kingsley, 10/30/2016 at 1715. Lukasz Obrien DO Oct 30, 2016 11:35 Machelle Avila Oct 30, 2016 11:42
[2016-10-30 11:39] VITALS: BP 183/83; PULSE 92; RESP 20
[2016-10-30] MEDS ORDERED: LidocaineVisc 2%:Antacid 1:1 10 mL Syringe PO ONE (11:40)
[2016-10-30 11:48] LABS: BASOPHILS % (AUTO) 0.4 % (0-3); EOSINOPHILS % (AUTO) 1.2 % (0-5); MONOCYTES % (AUTO) 9.9 % (4-12); Mean Corpuscular Hemoglobin 29.7 pg (27.0-35.0); Platelet Count 348 bil/L (150-400)
[2016-10-30] MEDS ORDERED: Alum-Mag Hydrox-Simeth 30 mL Suspension ONE (11:49)
[2016-10-30 12:06] LABS: TROPONIN T 0.01 ug/L (0.0-0.011)
[2016-10-30 12:17] LABS: Magnesium 2.2 mg/dL (1.6-2.6)
--- NOTE | 2016-10-30 12:31 | DRSVH ---
PROCEDURE: X-RAY CHEST ONE VIEW, PORTABLE ([id number]) INDICATIONS: cp TECHNIQUE: One view of the chest was acquired. COMPARISON: [facility], CT, CT ANGIO CHEST PE, 10/21/2016, 23:28. [facility] , CR, XR CHEST 2VW, 10/21/2016, 19:53. FINDINGS: Surgical changes and devices: None. Lungs and pleura: No pleural effusions or pneumothorax. Lungs are clear. Mediastinum: Mediastinal contours appear normal. Heart size is normal. Bones and chest wall: No suspicious bony lesions. Overlying soft tissues appear unremarkable. IMPRESSION: No acute cardiopulmonary disease. Dictated by: Phan Sheth M.D. on 10/30/2016 at 12:29 Approved by: Phan Sheth M.D. on 10/30/2016 at 12:29
[2016-10-30] MEDS ORDERED: Nitroglycerin 2% 1 Gm Ointment TOPICAL ONE (12:45)
--- NOTE | 2016-10-30 16:30 | DRSVH ---
[facility] [address] [place] [address] Echocardiogram Report Name: DAMI PACHECO IStudy Date : 10/30/2016 Height: 66 in Hospital Exam Location: [facility] Weight: 220 lb Gender: Female BSA: 2.1 m2 : 1950 Age: 66 yrs BP: 183/83 mmHg Reason For Study: Chest pain History: Hypertension Ordering Physician: Performed By: Krist[facility] Corder[facility] Interpretation Summary Left ventricular wall thickness is mildly increased. The ejection fraction is estimated to be 60-65%. EF has not changed since prior study. Left ventricular wall motion is normal. Compared to the prior exam, the left ventricular wall motion has not changed. Assessment of diastolic parameters indicates a relaxation abnormality of the left ventricle, consistent with normal filling pressures. The right ventricle is normal in size and function. Procedure: A two-dimensional transthoracic echocardiogram with color flow and Doppler was performed in limited views only. Comparison is made with the echocardiogram of 10/22/2016. A contrast injection of Definity was performed to improve assessment of LV function. The patient was in normal sinus rhythm during the exam. Left Ventricle: The left ventricle is normal in size. Left ventricular wall thickness is mildly increased. The ejection fraction is estimated to be 60- 65%. Left ventricular wall motion is normal. Compared to the prior exam, the left ventricular wall motion has not changed. Assessment of diastolic parameters indicates a relaxation abnormality of the left ventricle, consistent with normal filling pressures. Right Ventricle: The right ventricle is normal in size and function. Mitral Valve: There is trace mitral regurgitation. MMode/2D Measurements & Calculations LVIDd LV forman. diameter/BSA (cm/m^2) LV sys. diameter/BSA (cm/m^2) : 4.1 cm LVIDs : 2.9 cm FS: 30.0 % IVSd: 1.2 cm LVPWd : 1.2 cm Doppler Measurements & Calculations MV E max perry MV E/A: 0.76 MV dec time MV P1/2t max perry : 87.1 cm/sec Med Peak E' Perry : 0.23 sec MV A max perry : 115.3 cm/sec E/E' med: 11.4 MVA(P1/2t): 3.3 cm2 MV P1/2t: 66.0 msec Lat Peak E' Perry E/E' lat: 7.5 E/e' average: 9.5 MV A dur: 0.12 sec Reading Physician:EFE
[2016-10-30] MEDS ORDERED: NPR500T PO (16:42)
[2016-10-30] MEDS ORDERED: TRAM50TA2 PO (16:42)
[2016-10-30 17:14] VITALS: BP 142/60; PULSE 80; RESP 16; O2SAT 98
[2016-12-24] MEDS ORDERED: HYDR25CA PO (14:40)
[2016-12-24] MEDS ORDERED: BUSP10TA2 PO (14:40)
[2016-12-24] MEDS ORDERED: AMLO2.5T PO (14:40)
== END 2016-10-30 17:19 | disposition home or self-care (01) ==
LOC: SED 11:31 → EDUNIT# 11:31 → EDBD 11:31 → SED 17:19
DX: R07.9 Chest pain, unspecified (principal); I10 Essential (primary) hypertension; J45.909 Unspecified asthma, uncomplicated; K21.9 Gastro-esophageal reflux disease without esophagitis; F17.200 Nicotine dependence, unspecified, uncomplicated; Z79.51 Long term (current) use of inhaled steroids; Z88.1 Allergy status to other antibiotic agents; Z88.8 Allergy status to other drugs, medicaments and biological substances; Z88.0 Allergy status to penicillin
CPT/HCPCS: 36415; 71010; 80053; 83735; 84484; 85025; 93005; 99285; C8924; Q9957

== ENCOUNTER 2016-12-25 12:35 | Day surgery (SDC) | payer MEDICARE, MEDICAID ==
[~2016-12-25] VITALS: Ht 165.1 cm; Wt 90.7 kg
[~2016-12-25 12:35] MED LIST changes: -AMLO10TA3 PO; +AMLO2.5T PO; -ATRV10T PO; -Al Hydrox/Mg Hydrox/Simeth PO; +BUSP10TA2 PO; -DIPH25CA6 PO; +HYDR25CA PO; +NPR500T PO; -OMEP20CA11 PO; +Sodium Chloride LOK Flush 10 mL Syringe IV PRN; +fentaNYL-PF 50 mCg/mL 2 mL Inj IVPUSH PRN
[2016-12-25] MEDS ORDERED: fentaNYL-PF 50 mCg/mL 2 mL Inj IVPUSH ONE (12:36)
[2016-12-25 13:10] VITALS: BP 131/64; PULSE 75; O2SAT 95
[2016-12-25] MEDS ORDERED: 0.9% Sodium Chloride 1,000 ML IV ONE (13:26)
[2016-12-25 13:58] VITALS: BP 149/80; PULSE 80; RESP 16; O2SAT 96
[2016-12-25 14:08] VITALS: BP 135/68; PULSE 80; RESP 16; O2SAT 96
--- NOTE | 2016-12-25 23:54 | ENDO ---
[address] [address] ENDOSCOPY PROCEDURE PATIENT: DAMI PACHECO I : 1950 MR#: [id number] ADMIT: 12/25/2016 JOB ID: [id number] DATE OF SERVICE: 12/25/2016 TITLE OF OPERATION: Esophagogastroduodenoscopy with biopsy. PREOPERATIVE DIAGNOSIS(ES): 1. Gastroesophageal reflux disease. 2. Epigastric pain POSTOPERATIVE DIAGNOSIS(ES): Normal upper endoscopy, status post biopsy. ANESTHESIA: Fentanyl 100 mcg, Versed 5 mg IV administered. COMPLICATIONS: None. BLOOD LOSS: Minimal. DESCRIPTION OF PROCEDURE: After risks and benefits were explained to the patient, informed consent was obtained. After anesthesia was administered, upper endoscope was inserted in the mouth and intubated the esophagus, stomach, second portion of duodenum. Mucosa carefully examined. After procedure was done, the scope was withdrawn and the procedure terminated. FINDINGS: Upon inspection of the esophagus, the esophagus was normal without masses, ulcers, or lesions. Z-line located at 40 cm from incisors. Upon entering the stomach, the stomach was also normal without masses, ulcers, or lesions. Retroflexion was normal. Duodenal bulb, first and second portion were normal. Biopsies taken of duodenum, antrum, body, and distal esophagus. IMPRESSION: Normal upper endoscopy, status post biopsy. RECOMMENDATION: Await pathology results. Follow up in the GI clinic as needed. CLINT
--- NOTE | 2016-12-28 14:34 | PATH ---
SURGICAL PATHOLOGY Attending Physician:Ricardo Reddy MD CASE STATUS: Signed Out PATIENT NAME: DAMI PACHECO I. PID: [id number] : 1950 DATE COLLECTED:12/25/2016 21:31 SPECIMEN: 1: Duodenum, Biopsy 2: Stomach, Antrum, Biopsy 3: Gastric, Biopsy 4: Esophagus, Biopsy CLINICAL HISTORY: 1). DUODENUM BIOPSY 2). ANTRUM BIOPSY 3). GASTRIC BODY BIOPSY 4). DISTAL ESOPHAGUS BIOPSY FINAL DIAGNOSIS: 1.DUODENUM BIOPSY: FRAGMENTS OF NORMAL-APPEARING SMALL BOWEL MUCOSA. Normal delicate mucosal villi present. Negative for significant inflammation, dysplasia and malignancy. 2.ANTRUM BIOPSY: MILD CHRONIC GASTRITIS INVOLVING FUNDIC MUCOSA WITH NO ANTRAL MUCOSA IDENTIFIED (SEE COMMENT). Negative for evidence of Helicobacter on H&E stain. Negative for intestinal metaplasia. Negative for dysplasia and malignancy. 3.GASTRIC BODY BIOPSY: MILD CHRONIC GASTRITIS INVOLVING ANTRAL MUCOSA WITH NO FUNDIC MUCOSA IDENTIFIED (SEE COMMENT). Negative for evidence of Helicobacter on H&E stain. Negative for intestinal metaplasia. Negative for dysplasia and malignancy. 4.DISTAL ESOPHAGUS BIOPSY: FRAGMENTS OF SQUAMOUS EPITHELIUM WITH NO GASTRIC-TYPE EPITHELIUM IDENTIFIED. Negative for dysplasia and malignancy. Negative for intraepithelial eosinophils. ICD10 K29.70 NOTE: Specimens 2 and 3 appear to have been labeled in reverse order at the time of submission. GROSS DESCRIPTION: The specimen is received in four formalin filled containers labeled with the patient's name. 1). The specimen is sublabeled "duodenum" and consists of 3 portions of tissue which aggregate to 0.3 x 0.3 x 0.2 CM. The specimen is entirely submitted in cassette 1A. 2). The specimen is sublabeled "antrum" and consists of a 0.4 x 0.3 x 0.2 CM portion of tissue which is entirely submitted in cassette 2A. 3). The specimen is sublabeled "gastric body" and consists of 2 portions of tissue which aggregate to 0.4 x 0.4 x 0.3 CM. The specimen is entirely submitted in cassette 3A. 4). The specimen is sublabeled "distal esophagus" consists of 2 portions of tissue which aggregate to 0.4 x 0.4 x 0.2 CM. The specimen is entirely submitted in cassette 4A. 12/25/2016 DAC MICRO DESCRIPTION: See diagnosis. ICD-9 CODES: CPT CODES: 1: 46282 2: 84589 3: 56592 4: 25602 Electronically Signed Out Adair Cortez MD [facility] Pathology [facility] [address], [place] [address] Technical component performed at [facility], [address], [place], [address]
== END 2016-12-25 23:59 | disposition home or self-care (01) ==
LOC: END 12:35
PROVIDERS: ATTEND Internal Medicine Gastroenterology
DX: K29.50 Unspecified chronic gastritis without bleeding (principal); K21.9 Gastro-esophageal reflux disease without esophagitis; R10.13 Epigastric pain; R14.0 Abdominal distension (gaseous); I10 Essential (primary) hypertension; J45.909 Unspecified asthma, uncomplicated; G89.4 Chronic pain syndrome; F41.9 Anxiety disorder, unspecified; F17.210 Nicotine dependence, cigarettes, uncomplicated; Z85.43 Personal history of malignant neoplasm of ovary; Z90.710 Acquired absence of both cervix and uterus
CPT/HCPCS: 43239; G0500; J2250; J3010; J7030